=== PATIENT | male | born 1965 | race Caucasian/White ===

== ENCOUNTER 2016-08-11 00:34 | Emergency (ER) | payer OTHER ==
[2016-08-11 00:46] VITALS: BP 157/95
[2016-08-11] MEDS ORDERED: cefTRIAXone 1 GM, Lidocaine 1% 2.1 ML IM ONE ×2 (01:16)
--- NOTE | 2016-08-11 01:20 | EDM.PDOC ---
[id number] Time Seen by Provider: 08/11/16 01:16 Source of Information: Reports: Patient History Limitations: Reports: No limitations - History of Present Illness INITIAL COMMENTS - FREE TEXT/NARRATIVE: onset Sx this AM worse tonight lost voice. - Related Data Allergies/ADRs: Allergies Allergy/AdvReac Type Severity Reaction Status Date / Time No Known Allergies Allergy Verified 08/11/16 00:48 Home Meds: Home Meds . [No Known Home Meds] 07/02/13 [History] Social & Family History - Tobacco Use Smoking Status *Q: Current Every Day Smoker Years of Tobacco use: 40 Packs/Tins Daily: 20 Used Tobacco, but Quit: No Month Tobacco Last Used: jun - Caffeine Use Caffeine Use: Reports: Coffee - Alcohol Use Days Per Week of Alcohol Use: 0 - Recreational Drug Use Recreational Drug Use: No ED ROS ENT - Review of Systems Review Of Systems: ROS reveals no pertinent complaints other than HPI. ED EXAM, ENT - Physical Exam Exam: See Below Exam Limited By: No limitations General Appearance: alert, WD/WN, no apparent distress Ears: hearing grossly normal Mouth/Throat: Pharyngeal erythema, Tonsillar erythema, Tonsillar swelling Head: atraumatic Neck: non-tender, full range of motion Respiratory/Chest: no respiratory distress Cardiovascular: regular rate, rhythm GI/Abdominal: soft, non tender Neurological: alert, oriented, normal cognition, normal gait, no motor/sensory deficits Psychiatric: normal affect, normal mood Skin: Warm, Dry Lymphatic: no adenopathy Course - Vital Signs Last Recorded V/S: Last Vital Signs Temp 36.3 C 08/11/16 00:42 Pulse 93 08/11/16 00:42 Resp 18 08/11/16 00:42 BP 157/95 H 08/11/16 00:42 Pulse Ox 96 08/11/16 00:42 - Orders/Labs/Meds Orders: Active Orders 24 hr Category Date Time Status CULTURE STREP A CONFIRMATION [] Stat Lab 08/11/16 00:49 Results STREP SCRN A RAPID W CULT CONF [] Stat Lab 08/11/16 00:49 Results Meds: Medications Discontinued Medications Generic Name Dose Route Start Last Admin Trade Name Freq PRN Reason Stop Dose Admin Ceftriaxone Sodium 1 gm/ 0 gm 08/11/16 01:16 08/11/16 01:27 Lidocaine HCl 2.1 ml IM 08/11/16 01:17 1 inj ONETIME ONE Administration Departure - Departure Time of Disposition: 01:45 Disposition: Home, Self-Care 01 Condition: good Clinical Impression: Tonsillitis Instructions: Tonsillitis, [id number] Referrals: Abel Pizarro MD [Primary Care Provider] - Forms: ED Department Discharge Additional Instructions: 1) avoid solid foods and scratchy foods 2) follow up at clinic or recheck as needed rx given: z-elizabeth - My Orders Last 24 Hours: My Active Orders 08/11/16 00:49 CULTURE STREP A CONFIRMATION [RM] Stat STREP SCRN A RAPID W CULT CONF [] Stat - Assessment/Plan Last 24 Hours: My Active Orders 08/11/16 00:49 CULTURE STREP A CONFIRMATION [RM] Stat STREP SCRN A RAPID W CULT CONF [] Stat
== END 2016-08-11 01:48 | disposition home or self-care (01) ==
LOC: DL.ED 00:34
DX: J03.90 Acute tonsillitis, unspecified (principal); F17.210 Nicotine dependence, cigarettes, uncomplicated
CPT/HCPCS: 87081; 87430; 96372; 99283; J0696

== ENCOUNTER 2017-04-30 05:44 | Day surgery (SDC) | payer OTHER ==
[2017-04-30] MEDS ORDERED: Midazolam 1 MG/ML 2 ML SDV IV ONE ×7 (05:45→06:52)
[2017-04-30] MEDS ORDERED: fentaNYL 100 MCG/2 ML SDV IV ONE ×3 (05:45→06:45)
[2017-04-30] MEDS ORDERED: Dextrose 5%-0.45% NaCl 1,000 ML IV SCH (06:00)
[2017-04-30] MEDS ORDERED: Sodium Chloride 0.9% 10 ML Syringe FLUSH PRN (06:00)
[2017-04-30] MEDS ORDERED: Midazolam 1 MG/ML 2 ML SDV ONE (06:05)
[2017-04-30] MEDS ORDERED: fentaNYL 100 MCG/2 ML SDV ONE (06:05)
--- NOTE | 2017-04-30 07:36 | OR ---
DATE: 04/30/2017 PROCEDURE: Total colonoscopy. INSTRUMENT USED: CF-H180 AL Olympus video colonoscope. PREMEDICATIONS: Fentanyl 100 mcg intravenous, Versed 4 mg intravenous. Nasal O2 cannula. The procedure was done under pulse oximetry, BP recording, and manager cardiac. INDICATION: Screening colonoscopic examination is done for detection of any polypoid lesions and removal, endoscopic hemostasis therapy if needed. DESCRIPTION OF PROCEDURE: Initial rectal exam was unremarkable. Rigid anoscopy was normal. The colonoscope was passed with ease up to the ileocecal area. Photographs were taken of the normal-appearing cecum, identified by landmarks of appendiceal orifice and double-bulged ileocecal folds. No bleeding was noted from any of the visualized areas at the commencement of the examination. No stricture. No vascular ectasia. No large isolated ulcerations seen. No evidence of diffuse inflammatory bowel disease in the form of friability, contact bleeding, or ulcerations. No polyp or tumor mass identified. There was moderate amount of fecal material that had to be aspirated. Probing the proximal sides of folds and flexures, using adequate distention and clearing up the stool material, withdrawal of the scope was made. Cecum to rectum time over 6 minutes. No bleeding was noted from any of the visualized at the completion of examination. IMPRESSION: Normal study. The patient tolerated the procedure well. [facility] /[id number]
[2017-04-30 08:54] VITALS: BP 120/88
== END 2017-04-30 08:51 | disposition home or self-care (01) ==
LOC: DL.ENDO 05:44
PROVIDERS: ATTEND Internal Medicine Gastroenterology
DX: Z12.11 Encounter for screening for malignant neoplasm of colon (principal); E78.00 Pure hypercholesterolemia, unspecified; R73.9 Hyperglycemia, unspecified; Z72.0 Tobacco use
CPT/HCPCS: 45378; J2250; J3010; J7042

== ENCOUNTER 2018-02-08 00:09 | Emergency (ER) | payer OTHER ==
[2018-02-08] MEDS ORDERED: Aspirin 81 MG Tab.Chew ONE (00:21)
[2018-02-08] MEDS ORDERED: Aspirin 81 MG Tab.Chew PO ONE (00:21)
[2018-02-08] MEDS ORDERED: Tenecteplase 50 MG Kit IV ONE (00:21)
[2018-02-08] MEDS ORDERED: Morphine 2 MG/ML Syringe IVPUSH ONE (00:21)
[2018-02-08] MEDS ORDERED: Ondansetron 4 MG/2 ML SDV IV ONE (00:21)
--- NOTE | 2018-02-08 00:23 | EDM.PDOC ---
ED HPI GENERAL MEDICAL PROBLEM - General Chief Complaint: Chest Pain Stated Complaint: CHEST PAIN [id number] Time Seen by Provider: 02/08/18 00:22 Source of Information: Reports: Patient History Limitations: Reports: No Limitations - History of Present Illness INITIAL COMMENTS - FREE TEXT/NARRATIVE: onset mid-left sternal chest pain x 3 hours. Mid-Sternal Chest Pain Score (Numeric/FACES): 8 - Related Data Allergies Allergy/AdvReac Type Severity Reaction Status Date / Time No Known Allergies Allergy Verified 04/30/17 06:20 Home Meds: Home Meds Aspirin/Caffeine [Carrillo Back & Body Caplet] 2 tab PO DAILY 04/27/17 [History] Past Medical History HEENT History: Reports: None Cardiovascular History: Reports: High Cholesterol Genitourinary History: Reports: None Musculoskeletal History: Reports: None Neurological History: Reports: None Psychiatric History: Reports: None Endocrine/Metabolic History: Reports: None Hematologic History: Reports: None Immunologic History: Reports: None Oncologic (Cancer) History: Reports: None Dermatologic History: Reports: None - Infectious Disease History Infectious Disease History: Reports: Chicken Pox - Past Surgical History Head Surgeries/Procedures: Reports: None HEENT Surgical History: Reports: Other (See Below) Other HEENT Surgeries/Procedures: jaw surg. cyst to back of neck Cardiovascular Surgical History: Reports: None GI Surgical History: Reports: None Musculoskeletal Surgical History: Reports: Other (See Below) Other Musculoskeletal Surgeries/Procedures:: L) knee trauma Social & Family History - Family History Family Medical History: Noncontributory - Caffeine Use Caffeine Use: Reports: Coffee Caffeine Use Comment: 112oz ED ROS GENERAL - Review of Systems Review Of Systems: ROS reveals no pertinent complaints other than HPI. ED EXAM, GENERAL - Physical Exam Exam: See Below Exam Limited By: No Limitations General Appearance: Alert, WD/WN, Mild Distress, Other (discomfort) Ears: Hearing Grossly Normal Throat/Mouth: Normal Voice, No Airway Compromise Head: Atraumatic Neck: Non-Tender, Full Range of Motion Respiratory/Chest: No Respiratory Distress Cardiovascular: Regular Rate, Rhythm GI/Abdominal: Soft, Non-Tender Neurological: Alert, Oriented, Normal Cognition, Normal Gait, No Motor/Sensory Deficits Psychiatric: Normal Affect, Normal Mood Skin Exam: Warm, Dry, Normal Color Lymphatic: No Adenopathy Course - Vital Signs Last Recorded V/S: Last Vital Signs Temp 36.2 C 09/28/18 00:13 Pulse 81 02/08/18 00:13 Resp 15 02/08/18 00:13 BP 164/94 H 02/08/18 00:32 Pulse Ox 98 02/08/18 00:13 - Orders/Labs/Meds Orders: Active Orders 24 hr Category Date Time Status COMPREHENSIVE METABOLIC PN,CMP [CHEM] Stat Lab 02/08/18 00:19 Received INR,PT,PROTHROMBIN TIME [COAG] Stat Lab 02/08/18 00:19 Received PTT,PARTIAL THROMBOPLSTIN TIME [COAG] Stat Lab 02/08/18 00:19 Received TROPONIN I [CHEM] Stat Lab 02/08/18 00:19 Received Labs: Laboratory Tests 02/08/18 Range/Units 00:19 WBC 9.9 (5.0-10.0) 10^3/uL RBC 5.46 (4.6-6.2) 10^6/uL Hgb 15.6 (14.0-18.0) g/dL Hct 46.6 (40.0-54.0) % MCV 85.3 (80-100) fL MCH 28.6 (27.0-34.0) pg MCHC 33.5 (33.0-35.0) g/dL Plt Count 239 (150-450) 10^3/uL Neut % (Auto) 71.6 (42.2-75.2) % Lymph % (Auto) 16.0 L (20.5-50.1) % [place] % (Auto) 9.2 H (2-8) % Eos % (Auto) 2.9 (1.0-3.0) % Baso % (Auto) 0.3 (0.0-1.0) % Meds: Medications Discontinued Medications Generic Name Dose Route Start Last Admin Trade Name Freq PRN Reason Stop Dose Admin Aspirin 324 mg 02/08/18 00:21 02/08/18 00:22 Aspirin PO 02/08/18 00:22 324 mg ONETIME ONE Administration Aspirin Confirm 02/08/18 00:21 02/08/18 00:25 Aspirin Administered 02/08/18 00:22 Not Given Dose 324 mg .ROUTE .STK-MED ONE Clopidogrel Bisulfate 300 mg 02/08/18 00:37 Plavix PO 02/08/18 00:38 ONETIME ONE Heparin Sodium (Porcine) 5,000 units 02/08/18 00:37 Heparin Sodium IVPUSH 02/08/18 00:38 ONETIME ONE Morphine Sulfate 2 mg 02/08/18 00:21 02/08/18 00:24 Morphine IVPUSH 02/08/18 00:22 2 mg ONETIME ONE Administration Nitroglycerin 0.4 mg 02/08/18 00:29 02/08/18 00:32 Nitrostat SL 02/08/18 00:30 0.4 mg ONETIME ONE Administration Ondansetron HCl 4 mg 02/08/18 00:21 02/08/18 00:25 Zofran IV 02/08/18 00:22 4 mg ONETIME ONE Administration Tenecteplase 50 mg 02/08/18 00:21 02/08/18 00:33 Tnkase IV 02/08/18 00:22 50 mg ONETIME ONE Administration Protocol - Re-Assessments/Exams Free Text/Narrative Re-Assessment/Exam: 02/08/18 00:[address] Oliver @ who kindly accepted pt Departure - Departure Time of Disposition: 00:39 Disposition: DC/Tfer to Acute Hospital 02 Reason for Transfer *Q: Other Condition: Good Clinical Impression: Acute myocardial infarction Qualifiers: Myocardial infarction type: ST elevation myocardial infarction Involved coronary artery: unspecified coronary artery Qualified Code(s): I21.3 - ST elevation (STEMI) myocardial infarction of unspecified site Forms: Interfacility Transfer EMTALA - My Orders Last 24 Hours: My Active Orders 02/08/18 00:19 COMPREHENSIVE METABOLIC PN,CMP [CHEM] Stat INR,PT,PROTHROMBIN TIME [COAG] Stat PTT,PARTIAL THROMBOPLSTIN TIME [COAG] Stat TROPONIN I [CHEM] Stat - Assessment/Plan Last 24 Hours: My Active Orders 02/08/18 00:19 COMPREHENSIVE METABOLIC PN,CMP [CHEM] Stat INR,PT,PROTHROMBIN TIME [COAG] Stat PTT,PARTIAL THROMBOPLSTIN TIME [COAG] Stat TROPONIN I [CHEM] Stat
[2018-02-08] MEDS ORDERED: Nitroglycerin 0.4 MG Tab.SL SL ONE (00:29)
[2018-02-08 00:33] VITALS: BP 164/94
[2018-02-08] MEDS ORDERED: Heparin Sodium 5,000 Units/ML Vial IVPUSH ONE (00:37)
[2018-02-08] MEDS ORDERED: Clopidogrel 75 MG Tab PO ONE (00:37)
[2018-02-08 00:45] LABS: ANION GAP 14.9; CHLORIDE,CL 102 mmol/L (101-111); SODIUM,NA 138 mmol/L (135-145)
[2018-02-08] MEDS ORDERED: Heparin Sodium/0.45% NaCl 25,000 UNITS/500 ML BAG IV ONE (00:49)
[2018-02-08] MEDS ORDERED: Heparin Sodium/0.45% NaCl 500 ML ONE (01:36)
== END 2018-02-08 01:12 ==
LOC: DL.ED 00:09
DX: I21.3 ST elevation (STEMI) myocardial infarction of unspecified site (principal); F17.210 Nicotine dependence, cigarettes, uncomplicated; E78.00 Pure hypercholesterolemia, unspecified; Z79.82 Long term (current) use of aspirin
CPT/HCPCS: 36415; 80053; 84484; 85025; 85610; 85730; 96365; 96375; 96376; 99285; A9270; J1644; J2270; J2405; J3101; 99284

== ENCOUNTER 2020-05-16 08:52 | Emergency (ER) | payer OTHER ==
[2020-05-16 09:05] VITALS: BP 145/77; PULSE 107
--- NOTE | 2020-05-16 09:17 | EDM.PDOC ---
ED HPI GENERAL MEDICAL PROBLEM - General Chief Complaint: Upper Extremity Injury/Pain Stated Complaint: STATED HE DISLOCATED SHOULDER Time Seen by Provider: 05/16/20 09:13 Source of Information: Reports: Patient, RN, RN Notes Reviewed History Limitations: Reports: No Limitations - History of Present Illness INITIAL COMMENTS - FREE TEXT/NARRATIVE: Pt presents to ER with c/o right shoulder pain sustained from a ground level fall on , 05/13/20. Pt states he thinks his shoulder is dislocated. Denies any other injury. Onset: Sudden Onset Date: 05/13/20 Duration: Constant Location: Reports: Upper Extremity, Right Quality: Reports: Ache Severity: Severe Improves with: Reports: None Worsens with: Reports: Movement Associated Symptoms: Reports: No Other Symptoms Treatments CLINICAL RN: Reports: Aspirin Right Shoulder Pain Score (Numeric/FACES): 9 - Related Data Allergies Allergy/AdvReac Type Severity Reaction Status Date / Time No Known Allergies Allergy Verified 05/16/20 09:05 Home Meds: Home Meds Aspirin 325 mg PO DAILY 04/10/18 [History] Metoprolol Succinate [Toprol XL] 25 mg PO DAILY 04/10/18 [History] atorvaSTATin [Lipitor] 20 mg PO DAILY 04/10/18 [History] Fluticasone/Umeclidin/Vilanter [Trelegy Ellipta 100-62.5-25 MCG] 1 inhaler PO DAILY 05/16/20 [History] Omeprazole 20 mg PO DAILY 05/16/20 [History] Past Medical History HEENT History: Reports: None, Impaired Vision Other HEENT History: wears glasses Cardiovascular History: Reports: High Cholesterol, [place] Respiratory History: Reports: COPD Gastrointestinal History: Reports: GERD Genitourinary History: Reports: None Musculoskeletal History: Reports: None Neurological History: Reports: None Psychiatric History: Reports: None Endocrine/Metabolic History: Reports: None Hematologic History: Reports: None Immunologic History: Reports: None Oncologic (Cancer) History: Reports: None Dermatologic History: Reports: None - Infectious Disease History Infectious Disease History: Reports: Chicken Pox - Past Surgical History Head Surgeries/Procedures: Reports: None HEENT Surgical History: Reports: Other (See Below) Other HEENT Surgeries/Procedures: jaw surg. cyst to back of neck Cardiovascular Surgical History: Reports: Coronary Artery Bypass GI Surgical History: Reports: None Musculoskeletal Surgical History: Reports: Other (See Below) Other Musculoskeletal Surgeries/Procedures:: L) knee trauma Social & Family History - Family History Family Medical History: No Pertinent Family History - Tobacco Use Tobacco Use Status *Q: Current Every Day Tobacco User Years of Tobacco use: 40 Packs/Tins Daily: 0.5 - Caffeine Use Caffeine Use: Reports: Coffee Caffeine Use Comment: 112oz - Recreational Drug Use Recreational Drug Use: No - Living Situation & Occupation Occupation: Employed Review of Systems - Review of Systems Review Of Systems: Comprehensive ROS is negative, except as noted in HPI. ED EXAM, GENERAL - Physical Exam Exam: See Below Exam Limited By: No Limitations General Appearance: Alert, WD/WN, No Apparent Distress Head: Atraumatic, Normocephalic Neck: Normal Inspection, Supple, Non-Tender, Full Range of Motion Respiratory/Chest: No Respiratory Distress, Lungs Clear, Normal Breath Sounds, No Accessory Muscle Use, Chest Non-Tender Cardiovascular: Normal Peripheral Pulses Back Exam: Normal Inspection Extremities: Normal Capillary Refill, Limited Range of Motion (Rt shoulder due to pain, no visible bruising, swelling, or deformity.). No: Joint Swelling Neurological: Alert, Oriented, No Motor/Sensory Deficits Psychiatric: Normal Mood Skin Exam: Warm, Dry, Intact, Normal Color, No Rash Course - Vital Signs Last Recorded V/S: Last Vital Signs Temp 97.3 F 05/16/20 09:00 Pulse 107 H 05/16/20 09:00 Resp 16 05/16/20 09:00 BP 145/77 H 05/16/20 09:00 Pulse Ox 98 05/16/20 09:00 - Orders/Labs/Meds Orders: Active Orders 24 hr Category Date Time Status Lidocaine 5% Med 05/16/20 10:05 Once 30 gm TOP ONETIME ONE Meds: Medications Discontinued Medications Generic Name Dose Route Start Last Admin Trade Name Freq PRN Reason Stop Dose Admin Hydrocodone Bitart/Acetaminophen 1 tab 05/16/20 10:00 Belen 325-10 Mg PO 05/16/20 10:01 ONETIME ONE - Radiology Interpretation Free Text/Narrative:: [facility] [place] [facility] Final Radiology Report Call: [phone] assistance Online chat: [email or web address] Name: ALYSON RAMIREZ Age: 54Years M Date: 05/16/2020 SSN: -- : 1965 Study: CR SHOULDER COMP RT Requesting Physician: RADHA BALDERRAMA Images: 3 Addl Studies: Provided Clinical History: Rt shoulder pain s/p fall Contrast: Contrast Medium: Contrast Amount: Contrast Method: Page 1 of 2 PROCEDURE INFORMATION: Exam: XR Right Shoulder Exam date and time: 05/16/2020 9:19 AM Age: 54 years old Clinical indication: Injury or trauma; Fall; Blunt trauma (contusions or hematomas); Shoulder; Right; Injury date: 05/13/2020; Additional info: RT shoulder pain S/P fall TECHNIQUE: Imaging protocol: XR Right shoulder. Views: 2 or more views. COMPARISON: No relevant prior studies available. FINDINGS: Bones/joints: Mild acromioclavicular sclerosis and spurring not causing subacromial narrowing. No fracture or joint effusion. Smoothly marginated proximal medial humerus hyperostosis. Soft tissues: 2 mm long crescentic calcifications adjacent to the right greater tuberosity. IMPRESSION: 1. Soft tissue calcifications in the region of the greater tuberosity or likely associated with rotator cuff injury of uncertain chronicity, less likely acute avulsion than chronic or old injury and possible calcific tendinitis. No acute fracture is noted. 2. Acromioclavicular osteoarthrosis. 3. Nonaggressive, nonspecific proximal medial humerus cortical thickening and convexity, old healed injury versus calcified osteochondroma. Thank you for allowing us to participate in the care of your patient. Dictated and Authenticated by: Jong Zuleta MD Departure - Departure Time of Disposition: 10:03 Disposition: Home, Self-Care 01 Condition: Good Clinical Impression: Calcific tendonitis of right shoulder Injury of right rotator cuff Qualifiers: Encounter type: initial encounter Qualified Code(s): S46.001A - Unspecified injury of muscle(s) and tendon(s) of the rotator cuff of right shoulder, initial encounter - Discharge Information *PRESCRIPTION DRUG MONITORING PROGRAM REVIEWED*: No *COPY OF PRESCRIPTION DRUG MONITORING REPORT IN PATIENT NEVA: No Instructions: Calcific Tendinitis, Shoulder Pain, [id number] Forms: ED Department Discharge Additional Instructions: Rx: Hydrocodone APAP 5mg/325mg *Do not drive or work while under the influence of this medication. Rx: Naprosyn 500mg Apply Lidocaine Ointment to area of pain every 4 to 6 hours as needed. Do not immobilize the shoulder. Follow up in clinic this week for recheck and referral to audio specialist. Sepsis Event Note (ED) - Evaluation Sepsis Screening Result: No Definite Risk - Focused Exam Vital Signs: Vital Signs Temp Pulse Resp BP Pulse Ox 05/16/20 09:00 97.3 F 107 H 16 145/77 H 98 - My Orders Last 24 Hours: My Active Orders 05/16/20 10:05 Lidocaine 5% 30 gm TOP ONETIME ONE - Assessment/Plan Last 24 Hours: My Active Orders 05/16/20 10:05 Lidocaine 5% 30 gm TOP ONETIME ONE
--- NOTE | 2020-05-16 09:58 | CR ---
PROCEDURE INFORMATION: Exam: XR Right Shoulder Exam date and time: 05/16/2020 9:19 AM Age: 54 years old Clinical indication: Injury or trauma; Fall; Blunt trauma (contusions or hematomas); Shoulder; Right; Injury date: 05/13/2020; Additional info: RT shoulder pain S/P fall TECHNIQUE: Imaging protocol: XR Right shoulder. Views: 2 or more views. COMPARISON: No relevant prior studies available. FINDINGS: Bones/joints: Mild acromioclavicular sclerosis and spurring not causing subacromial narrowing. No fracture or joint effusion. Smoothly marginated proximal medial humerus hyperostosis. Soft tissues: 2 mm long crescentic calcifications adjacent to the right greater tuberosity. IMPRESSION: 1. Soft tissue calcifications in the region of the greater tuberosity or likely associated with rotator cuff injury of uncertain chronicity, less likely acute avulsion than chronic or old injury and possible calcific tendinitis. No acute fracture is noted. 2. Acromioclavicular osteoarthrosis. 3. Nonaggressive, nonspecific proximal medial humerus cortical thickening and convexity, old healed injury versus calcified osteochondroma.
[2020-05-16] MEDS ORDERED: Acetaminophen/HYDROcodone 325-10 MG Tab PO ONE (10:00)
[2020-05-16] MEDS ORDERED: Lidocaine 5% Oint 35.44 GM Tube TOP ONE (10:05)
== END 2020-05-16 10:25 | disposition home or self-care (01) ==
LOC: DL.ED 08:52
DX: S46.001A Unspecified injury of muscle(s) and tendon(s) of the rotator cuff of right shoulder, initial encounter (principal); M75.31 Calcific tendinitis of right shoulder; F17.210 Nicotine dependence, cigarettes, uncomplicated; E78.00 Pure hypercholesterolemia, unspecified; I25.2 Old myocardial infarction; J44.9 Chronic obstructive pulmonary disease, unspecified; K21.9 Gastro-esophageal reflux disease without esophagitis; Z79.82 Long term (current) use of aspirin; Z79.899 Other long term (current) drug therapy; W01.0XXA Fall on same level from slipping, tripping and stumbling without subsequent striking against object, initial encounter
CPT/HCPCS: 73030; 99283; A9270